=== PATIENT | male | born 1950 | race Caucasian/White ===

== ENCOUNTER 2017-03-04 11:21 | Day surgery (SDC) | payer MEDICARE, OTHER ==
[~2017-03-04] VITALS: Ht 180.3 cm; Wt 103.3 kg
[~2017-03-04 11:21] MED LIST: CARV25TA2 PO; CHOL200025 PO; CeFAZolin 2 Gm/50 mL D5W IV Premix IV ONE; GLIM2TAB2 PO; HYDR2TAB27 PO; LIP40 PO; Lactated Ringer's 1,000 ML IV SCH; MULT-1018 PO; ONDA8TAB7 PO; SODI650T PO
[2017-03-04] MEDS ORDERED: Ketamine 10 mg/mL 20 mL Inj ONE (11:22)
[2017-03-04] MEDS ORDERED: Propofol 10,000 mCg/mL 20 mL Inj ONE (11:22)
[2017-03-04] MEDS ORDERED: fentaNYL-PF 50 mCg/mL 2 mL Inj ONE (11:22)
[2017-03-04 12:04] VITALS: BP 167/71; PULSE 70; RESP 16; O2SAT 100
[2017-03-04] MEDS ORDERED: CeFAZolin Inj 2 gm / 50mL D5W IV ONE (12:10)
[2017-03-04] MEDS ORDERED: Lactated Ringer's 1,000 ML IV ONE (12:51)
[2017-03-04] MEDS ORDERED: HepLOK Flush 100 unit/mL 5 mL Inj IVFLUSH ONE (13:13)
[2017-03-04] MEDS ORDERED: Lidocaine PF 1% 30 mL Inj INFILTRATE ONE (13:13)
[2017-03-04] MEDS ORDERED: Bupivacaine-MPF 0.5% 30 mL Inj INJ ONE (13:13)
[2017-03-04] MEDS ORDERED: Lactated Ringer's 1,000 ML IV SCH (13:15)
[2017-03-04] MEDS ORDERED: HYDROmorphone 1 mg/mL Inj IVPUSH PRN (13:15)
[2017-03-04] MEDS ORDERED: EPHEDrine Sulfate 50 mg/mL Inj IVPUSH PRN (13:15)
[2017-03-04] MEDS ORDERED: Phenylephrine 10,000 mCg/mL Inj IVPUSH PRN (13:15)
[2017-03-04] MEDS ORDERED: Ondansetron 2 mg/mL 2 mL Inj IVPUSH PRN (13:15)
[2017-03-04] MEDS ORDERED: Dexamethasone 4 mg/mL Inj IVPUSH PRN (13:15)
[2017-03-04] MEDS ORDERED: Atropine 0.4 mg/mL Inj IVPUSH PRN (13:15)
[2017-03-04] MEDS ORDERED: Labetalol 5 mg/mL 4 mL Inj IV PRN (13:15)
[2017-03-04] MEDS ORDERED: Lactated Ringer's 500 ML IV PRN (13:15)
[2017-03-04] MEDS ORDERED: MetoCLOpramide 5 mg/mL 2 mL Inj IVPUSH PRN (13:15)
[2017-03-04] MEDS ORDERED: fentaNYL-PF 50 mCg/mL 2 mL Inj IVPUSH PRN (13:15)
--- NOTE | 2017-03-04 13:15 | PCM.HPANE ---
Patient Data Surgeon Admitting Provider: Attending Provider:Zaid Garcia MD Primary Care Physician:Rhianna Scott MD Other Provider:Deena Callingham Anesthesia Reason for Visit Metastatic Liver Cancer Ht/WT & BMI Height (Feet): 5 Height (Inches): 11 Weight (Kilograms): 103.3 Body Mass Index 31.00 Allergies Coded Allergies: No Known Allergies (Unverified , 02/25/17) Past Anesthesia History Anesthesia History: Denies:: Abnormal Airway, Anesthesia Reactions (valium pre- op as teenager - made him feel very strange), Difficult Intubation, Fam Anesthesia Reaction Diabetes History Hx Diabetes?: Yes Type of Diabetes: Type II Glycemic Control: Oral Medication MRSA MRSA: No Medications Hypertension Medication: Yes Home Meds Incl Beta Claus: Yes Time Beta Claus Taken: 729 Reported Medications Hydromorphone (Dilaudid)2 Mg Tablet2 Mg PO Q4H PRN Pain 02/26/17 Ondansetron ODT (Zofran ODT)8 Mg Tablet8 Mg PO Q4H PRN For Nausea 02/26/17 Cholecalciferol (Vitamin D3) (Vitamin D3)2,000 Unit Tablet2,000 Unit PO DAILY 02/04/17 Multivitamin (Multi Vitamin Daily)1 Each Tablet1 Each PO DAILY Ref 0 02/04/17 Sodium Bicarbonate 650 Mg [id number] Mg PO BID 02/04/17 Glimepiride 2 Mg Tablet2 Mg PO BID Ref 0 02/04/17 Carvedilol 25 Mg [id number] Mg PO BID Ref 0 02/04/17 Atorvastatin (Lipitor)40 Mg [id number] Mg PO DAILY Ref 0 02/04/17 Discontinued Reported Medications Bicalutamide 50 Mg [id number] Mg PO DAILY 02/04/17 Acetaminophen/Codeine 300-30mg (Tylenol/Codeine #3)1 Each Tablet1 Tablet PO q4- 6hrs PRN Pain Ref 0 02/04/17 Aspirin 81 Mg [id number] Mg PO DAILY Ref 0 02/04/17 [place]-3/Dha/Epa/Fish Oil (Fish Oil 1,000 mg Softgel)1 Each Capsule2 Each PO DAILY 02/04/17 History History of ENT Problems?: No HEENT History: Denies:: Abnormal Airway Cataracts Difficult Intubation Glaucoma Hearing Problem Sinus Problem Hx of Heart Problems?: Yes Cardiovascular History: Positive for:: Hypertension Denies:: AICD Abdominal Aortic Aneurism Atrial Fibrillation Chest Pain Congestive Heart Failure Coronary Artery Disease Edema Heart Murmur Irregular Heartbeat Pacemaker Peripheral Vascular Rheumatic Fever Thrombophlebitis Hx of Respiratory Problem?: Yes Respiratory History: Positive for:: Pneumonia (probably 4 times in his life, late 2015) Denies:: Asthma COPD Dyspnea Emphysema Hemoptysis Oxygen Administration Tuberculosis Use of C-PAP Machine Use of Inhalers / NEBS Hx Neurologic Problems?: No Neurological History: Denies:: Alzheimer's Disease CVA Dementia Dizziness Headaches Multiple Sclerosis Parkinson's Disease Seizures Hx of GI Problems?: No Gastrointestinal History: Denies:: Cirrhosis Diverticulitis Gastroesphageal Reflux Heartburn Hepatitis Rectal Bleeding Other GI Pertinent History: colon cancer with mets - current admission problem Hx of Problems?: Yes Genitourinary History: Denies:: HX of Hemodialysis (stage III CKD/ ) Kidney Stones Urinary Tract Infection Male Hx: Positive for:: Prostate Problems (radical prostatectomy) Skin History: Denies:: History Skin Disorders? Pressure Ulcers Hx Musculoskeletal Problems?: Yes Musculoskeletal History: Positive for:: Back Injury (angelica mets) Osteoarthritis Denies:: Fibromyalgia Joint Replacement Musculoskeletal Trauma Hx of Psycho/Social Problems?: No Psycho Social History: Denies:: Anxiety Bipolar Disorder Hx Depression Hx Surgeries?: Yes (radical prostatectomy, hand ) Hx Any Other Health Problems?: Yes Other History: Positive for:: Cancer (prostate, colon) Hospitalization Denies:: Endocrine Disease Thyroid Disease History Blood Transfusions: Positive for:: Accept Blood Products? Denies:: Blood Transfusions Hx Diabetes: Yes Hx Alcohol Use: YesAlcoholic Drinks Per Day: holidays, occasions- none recentlyHx Substance Use: No Smoking Status: Former Smoker Have You Smoked inLast 12 mo: No Stop/Bang S-Snoring: Do You Snore Loudly: Yes T-Tired: feel tired, fatigued: No O-Obsered: Observed not breath: Yes P-Blood Pressure: treated: Yes B- Body Mass Index > 35 kg/m2: No A- Age over 50: Yes N- Neck Large Circumference: No G- Gender Male: Yes TREVER Total Score: 5 Risk Assessment Category Category 1A: Patient has history of documented sleep apnea, and HAS NOT received any narcotic, sedative or anesthesia administration during this stay. Category 1B: Patient has history of documented sleep apnea, and HAS received any narcotic , sedative or anesthesia administration during this stay Category 2: Patient has SUSPECTED Obstructive Sleep Apnea, and HAS received any narcotic , sedative or anesthesia administration during this stay. Category 3: Patient has SUSPECTED Obstructive Sleep Apnea and HAS NOT received narcotic, sedative or anesthesia administration during this stay. Category 4: Outpatient in Procedural Areas with known sleep apnea or who screen positive for High Risk via the STOP/BANG questionnaire. Exam Exam Vital Signs Vital Signs Date Time Temp Pulse Resp B/P Pulse Ox O2 Delivery O2 Flow Rate FiO2 03/04/17 12:04 35.9 70 16 167/71 100 Room Air General Appearance: Alert, Oriented X3, Cooperative, No Acute Distress HEENT/AIRWAY: MP 2 Lungs: Clear to Auscultation, Normal Air Movement Heart: Exam Unremarkable, Regular Rate/Rhythm, No Murmurs/Rubs/Gallops Plan Impression Patient chart reviewed, patient interviewed and anesthestic plan with risks, benefits, and alternatives discussed, and informed consent obtained. NPO Status: 1000 sips ASA Physical Status: ASA2 Mod Systemic Disease Anesthetic Plan: MAC Bene/Risks/Altern/Consents: Yes HP Complete Prior to Induction: Yes Serge Powers DO Mar 04, 2017 13:15
[2017-03-04] MEDS ORDERED: HYDROcodone-APAP 5-325 mg Tablet PO PRN (13:35)
[2017-03-04 13:41] VITALS: BP 139/77; PULSE 76; RESP 16; O2SAT 97
[2017-03-04 14:30] VITALS: BP 124/76; PULSE 74; RESP 16; O2SAT 98
--- NOTE | 2017-03-04 16:04 | PCM.ANEP1 ---
Post Anesthesia Phase 1 PACU Phase 1 Assessment Vital Signs Vital Signs Date Time Temp Pulse Resp B/P Pulse Ox O2 Delivery O2 Flow Rate FiO2 03/04/17 14:30 74 16 124/76 98 Room Air 03/04/17 13:41 36.3 76 16 139/77 97 Room Air 03/04/17 12:04 35.9 70 16 167/71 100 Room Air Anesthetic Administered: MAC CONTRERAS's with Equal Strength: Yes Pain: Yes Pain Scale Score: 0 Nausea or Vomiting: No Oxygen Delivery: Room Air Lungs: Clear to Auscultation, Normal Air Movement Serge Powers DO Mar 04, 2017 16:04
--- NOTE | 2017-03-04 17:29 | PCM.ANEP2 ---
Post Anesthesia Evaluation ASA/CMS Post Anesthesia Date of Service: Mar 04, 2017 VS in Patient's Normal Range?: Yes Resp Stable; Airway Patent?: Yes CV Function & Hydration Stable: Yes Mental Status Recovered?: Yes Pain control Satisfactory?: Yes N/V Control Satisfactory?: Yes Serge Powers DO Mar 04, 2017 17:29
--- NOTE | 2017-03-04 23:49 | OP ---
[address] [address] OPERATIVE REPORT PATIENT: DEEPAK PASTRANA : 1950 MR#: [id number] ADMIT: 03/04/2017 JOB ID: [id number] DATE OF SURGERY: 03/04/2017 PREOPERATIVE DIAGNOSIS(ES): 1. 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 2. Metastatic prostate cancer. POSTOPERATIVE DIAGNOSIS(ES): 1. 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 2. Metastatic prostate cancer. PROCEDURE: Left subclavian venous PowerPort. SURGEON: Zaid Garcia MD. CARPENTER MINE: None. INDICATIONS: A 67-year-old man just diagnosed last week with metastatic neuroendocrine tumor to his liver and he also has metastatic prostate cancer. PowerPort was requested by Dr. Suarez and also a colonoscopy. FINDINGS: The PowerPort was positioned into the proximal right atrium. There was good return of blood. No resistance to inflow and no pneumothorax by fluoroscopy. PROCEDURE: At the beginning and end of the operation, the SCOAP checklist was completed. He received deep sedation and local anesthesia with 1% lidocaine and 0.5% bupivacaine. Using ChloraPrep, he was prepped and draped in usual fashion. He was placed in the Trendelenburg position. A left subclavicular incision was made. The left subclavian vein was accessed and a guidewire positioned into the superior vena cava with fluoroscopic control. A pocket for the port was made on his anterior chest and a catheter tunneled between the two incisions, connected to the reservoir, which was secured to the chest wall with interrupted 2-0 Prolene sutures. The reservoir and catheter were flushed with heparinized saline and was cut to an appropriate length, and then with a split sheath introducer positioned into the proximal right atrium. There was good return of blood and no resistance to inflow. Again, no pneumothorax by fluoroscopy. The wounds were closed with subcutaneous 3-0 Vicryl, subcuticular 4-0 Vicryl. Dermabond was placed over the incisions. Estimated blood loss less than 10 cc. No apparent complications. The final sponge, needle and instrument counts were announced as correct, and the patient was returned to recovery room in stable condition.
[2017-03-06] MEDS ORDERED: GLIM2TAB PO (13:07)
[2017-03-06] MEDS ORDERED: CARV3.12 PO (13:08)
[2017-03-18] MEDS ORDERED: PROC-4 PO (09:57)
== END 2017-03-04 23:59 | disposition home or self-care (01) ==
LOC: SAS 11:21
PROVIDERS: ATTEND Surgery
PROC: 02H633Z Insertion of Infusion Device into Right Atrium, Percutaneous Approach (ICD-10-PCS; 2017-03-04)
PROC: B2141ZZ Fluoroscopy of Right Heart using Low Osmolar Contrast (ICD-10-PCS; 2017-03-04)
PROC: 0JH60XZ Insertion of Tunneled Vascular Access Device into Chest Subcutaneous Tissue and Fascia, Open Approach (ICD-10-PCS; principal; 2017-03-04 13:30)
DX: C61 Malignant neoplasm of prostate (principal); C7B.8 Other secondary neuroendocrine tumors; C79.51 Secondary malignant neoplasm of bone; E11.9 Type 2 diabetes mellitus without complications; Z79.84 Long term (current) use of oral hypoglycemic drugs; I10 Essential (primary) hypertension; Z87.891 Personal history of nicotine dependence
CPT/HCPCS: 36561; 77001; C1788; J0690; J1642; J2250; J3010; J7120

== ENCOUNTER 2017-03-07 10:05 | Day surgery (SDC) | payer MEDICARE, OTHER ==
[~2017-03-07] VITALS: Ht 180.3 cm; Wt 97.7 kg
[~2017-03-07 10:05] MED LIST changes: +0.9% Sodium Chloride 1,000 ML IV SCH; +CARV3.12 PO; -CeFAZolin 2 Gm/50 mL D5W IV Premix IV ONE; +GLIM2TAB PO; -GLIM2TAB2 PO; -Lactated Ringer's 1,000 ML IV SCH; +Sodium Chloride LOK Flush 10 mL Syringe IV PRN; +fentaNYL-PF 50 mCg/mL 2 mL Inj IVPUSH PRN
[2017-03-07] MEDS ORDERED: POLY17PO6 PO (10:32)
[2017-03-07 10:37] VITALS: BP 139/89; PULSE 87; RESP 14; O2SAT 98
[2017-03-07 11:40] VITALS: BP 148/87; PULSE 82; RESP 16; O2SAT 97
[2017-03-07 11:59] VITALS: BP 148/87; PULSE 75; RESP 14; O2SAT 97
--- NOTE | 2017-03-08 00:27 | ENDO ---
[address] [address] ENDOSCOPY PROCEDURE PATIENT: DEEPAK PASTRANA : 1950 MR#: [id number] ADMIT: 03/07/2017 JOB ID: [id number] DATE OF PROCEDURE: 03/07/2017 PREOPERATIVE DIAGNOSIS(ES): Poorly differentiated metastatic neuroendocrine tumor to the liver. POSTOPERATIVE DIAGNOSIS(ES): 1. 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 2. Duodenal ulcer. 3. Possible duodenal polyp. 4. Two proximal sigmoid colon polyps. 5. Sigmoid diverticulosis. PROCEDURES: 1. Upper endoscopy with biopsy. 2. Colonoscopy into terminal ileum with snare polypectomy x2. SURGEON: Zaid Garcia MD. INDICATIONS: A 67-year-old man who has a metastatic neuroendocrine tumor to his liver. Three days ago, I placed a PowerPort. The immunohistochemical studies of his liver metastasis suggested an upper gastrointestinal source. His PET scan showed enhancement in the sigmoid colon. After discussing options with the patient, and discussing his case with Dr. Juan M Suarez, it was elected to proceed with an upper endoscopy and a colonoscopy. His last colonoscopy was 11 years ago. FINDINGS: The esophagus was normal down to the GE junction, which was at 40 cm from the incisors. There was no evidence of esophageal inflammation, neoplasia, ulceration or stricture. Retroflexed views of the cardia revealed a normal Hill grade I flap valve. The fundus, body, and antrum of the stomach were normal. The pylorus was normal. In the duodenum there was a possible polyp but the overlying mucosa looked normal and I biopsied that. In the second portion of the duodenum there were three small nonbleeding ulcers that were biopsied separately. I could see well into the third portion of the duodenum. There was no gross evidence of malignancy in the esophagus, stomach or duodenum. He had an excellent prep. The scope was advanced into the terminal ileum. The withdrawal time was 12 minutes 37 seconds. In the proximal sigmoid colon he had two polyps, one of which was pedunculated measuring 1 to 1.5 cm. It was not ulcerated. It was not bleeding. I removed that with the cautery and snare. Stalk appeared normal. Immediately adjacent to it was a smaller polyp that I also removed with a snare and aspirated that. The larger polyp was removed with a Kirkpatrick Net. He had mild sigmoid diverticulosis. Retroflexed views of the rectum were normal. PROCEDURE: The procedure and sedation plan was discussed with the patient and nursing staff, and a procedural time-out was held. He gargled viscous Xylocaine. He received 6 mg of Versed and 150 mcg of fentanyl. The upper endoscopy was performed first with the GIF-H180J video endoscope. It was passed into the third portion the duodenum, withdrawn with results and biopsies as stated above. He was repositioned. A digital rectal exam was performed and the Olympus PCF-H180AL video colonoscope was passed transanally and advanced into the terminal ileum, which was totally normal. Withdrawn, and then as stated above, snare polypectomies with cautery as listed above. Specimens were submitted as a single specimen. Retroflexed views of the rectum were obtained. IMPRESSION: There is no clear evidence of a source for a metastatic neuroendocrine tumor in the esophagus, stomach, duodenum, colon, rectum or terminal ileum. PLAN: The patient is scheduled to see Dr. Suarez later this afternoon.
--- NOTE | 2017-03-08 11:18 | PATH ---
SURGICAL PATHOLOGY Attending Physician:Alxe Russ CASE STATUS: Signed Out PATIENT NAME: DEEPAK PASTRANA PID: [id number] : 1950 DATE COLLECTED:03/07/2017 20:43 SPECIMEN: 1: Duodenum, Biopsy 2: Duodenum, Biopsy 3: Colon, Biopsy CLINICAL HISTORY: 1). DUODENAL ULCER BIOPSY 2). DUODENAL BULB BIOPSY 3). PROXIMAL SIGMOID POLYPS X2 FINAL DIAGNOSIS: 1. Duodenal Ulcer Biopsy: Duodenal mucosa with acute and chronic inflammation and ulceration, and reactive epithelial changes. Negative for dysplasia and malignancy. Negative for evidence of celiac disease. 2. Duodenal Bulb Biopsy: Changes of chronic duodenitis with focal areas of foveolar metaplasia. Negative for evidence of celiac disease. Negative for dysplasia and malignancy. 3. Proximal Sigmoid Colon Polyps: Large polypoid tubular adenoma with no stalk identified. Small fragment of normal-appearing colon mucosa. ICD10 K26.9 GROSS DESCRIPTION: The specimen is received in three formalin filled containers labeled with the patient's name. 1). The specimen is sublabeled "duodenal" and consists of 2 portions of tissue which aggregate to 0.3 x 0.2 x 0.2 CM. The specimen is entirely submitted in cassette 1A. 2). The specimen is sublabeled "duodenal bulb" and consists of a 0.3 x 0.2 x 0.2 CM portion of tissue which is entirely submitted in cassette 2A. 3). The specimen is sublabeled "sigmoid polyps" and consists of 2 portions of tissue which aggregate to 0.8 x 0.8 x 0.7 CM. The smallest portion is entirely submitted in cassette 3A. The largest portion is trisected and entirely submitted in the same cassette. 03/07/2017 [facility] ICD-9 CODES: CPT CODES: 1: 48042 2: 96004 3: 45783 Electronically Signed Out Chris Whalen MD [facility] [place] [address] Technical component performed at [facility] [employer] [facility], [facility] [address], [place], [address]
[2017-03-18] MEDS ORDERED: PROC-4 PO (09:57)
== END 2017-03-07 23:59 | disposition home or self-care (01) ==
LOC: END 10:05
PROVIDERS: ATTEND Surgery
DX: C22.9 Malignant neoplasm of liver, not specified as primary or secondary (principal); K26.9 Duodenal ulcer, unspecified as acute or chronic, without hemorrhage or perforation; K29.80 Duodenitis without bleeding; D12.5 Benign neoplasm of sigmoid colon; K57.30 Diverticulosis of large intestine without perforation or abscess without bleeding; E11.9 Type 2 diabetes mellitus without complications; Z85.46 Personal history of malignant neoplasm of prostate; Z90.79 Acquired absence of other genital organ(s)

== ENCOUNTER 2017-08-05 19:27 | Emergency (ER) | payer MEDICARE, OTHER ==
[~2017-08-05 19:27] MED LIST changes: +0.9% Sodium Chloride 1,000 ML IV ONE; -0.9% Sodium Chloride 1,000 ML IV SCH; +CANNABIS TINCTURE PO; -CARV3.12 PO; -HYDR2TAB27 PO; -LIP40 PO; +LOPE-147 PO; +LORA1TAB PO; +METO-301 PO; -ONDA8TAB7 PO; +ONDA8TAB7 SL; +POLY17PO6 PO; +PRE20 PO; -Sodium Chloride LOK Flush 10 mL Syringe IV PRN; -fentaNYL-PF 50 mCg/mL 2 mL Inj IVPUSH PRN
--- NOTE | 2017-08-05 19:28 | ED.REPORT ---
HPI-General Illness Date of Service Aug 05, 2017 ED Provider: Leonardo Johnson DO Pt is a 67 year old male with a history of metastatic prostate cancer who presents to the ED via EMS for pain management. Per family, the pt has lost 40 lbs with worsening jaundice, global weakness, and decreased responsiveness. HPI difficult to obtain secondary to pt's condition. Nursing Notes Stated Complaint: UNCONTROLLED PAIN Chief Complaint: Pain management Nursing Notes Reviewed: Yes Allergies: Coded Allergies: No Known Drug Allergies (Verified Allergy, Unknown, 08/05/17) Scheduled ([Cannabis Tincture]) PO DAILY Carvedilol (Carvedilol) 25 Mg Tablet 25 MG PO DAILY Cholecalciferol (Vitamin D3) (Vitamin D3) 2,000 Unit Tablet 2,000 UNIT PO DAILY Glimepiride (Amaryl) 2 Mg Tablet 2 MG PO BID Loperamide HCl (Imodium A-D) 2 Mg Capsule 2 MG PO PRN Multivitamin (Multi Vitamin Daily) 1 Each Tablet 1 EACH PO DAILY Polyethylene Glycol 3350 (Miralax) 17 Gm Powd.pack 17 GM PO PRN Prednisone (PredniSONE) 20 Mg Tablet 20 MG PO QAM Sodium Bicarbonate (Sodium Bicarbonate) 650 Mg Tablet 650 MG PO 2tabs am, 1tabhs Scheduled PRN Lorazepam (Lorazepam) 1 Mg Tablet 1 MG PO Q8HRS PRN PRN For Nausea Metoclopramide (Reglan) 10 Mg Tablet 10 MG PO Q8HRS PRN PRN PRN For Nausea Ondansetron ODT (Zofran ODT) 8 Mg Tablet 8 MG SL Q8H PRN PRN For Nausea General Time Seen by MD: 19:26 Chief Complaint Other (pain management) Hx Obtained From: Spouse, EMS, Primary care provider (Dr. Mariano, oncologist) Arrived By: Ambulance Sudden in Onset?: No Onset Occurred: Onset unknown Symptom Duration: Since onset Quality: Painful Severity: Current: Moderate Severity: Maximum: Moderate Recent Healthcare: Recent doctor visit Similar Sx Previous: Yes Past Medical History Past Medical History Metastatic prostate cancer, colon cancer Reports: Diabetes mellitus, Hypertension Past Surgical History Radical prostatectomy Smoking History Former Smoker Social History Alcohol Use: "Social" Drug Use: Denies drug use Other Social History: Good social support Ambulatory Status Independent Review of Systems + jaundice, worsening + minimally responsive Full Review of Systems Constitutional: Reports: Weakness - generalized Endocrine: Reports: Weight loss Physical Exam Vital Signs Vital Signs Date Time Temp Pulse Resp B/P Pulse Ox O2 Delivery O2 Flow Rate FiO2 08/05/17 19:33 130 18 55/24 94 Room Air Initial VS: Reviewed Head / Eyes: Atraumatic, Normocephalic Neck: Supple, Full range of motion Respiratory: Breath sounds normal, Clear to auscultation, No respiratory distress Abdomen / GI: Soft, Non-tender Extremities: Vascular intact, Neuro intact General/Constitutional: Awake Alertness: Positive: Sleeping but arousable Critically ill appearing. Cardiovascular: Heart rate NL, Regular rhythm, Heart sounds NL Hypotensive Skin: Warm, Dry Jaundiced. Neurologic: CN II - XII intact Minimally responsive. Interpretation & Diagnostics Lab Results Interpretation Result Diagram: 08/05/17200008/05/172000 Test 08/05/17 20:01 White Blood Count 13.6th/mm3 (3.8-10.1) Red Blood Count 2.81mil/mm3 (4.40-5.80) Hemoglobin 8.3g/dL (13.8-17.2) Hematocrit 27.3% (41.0-50.0) Mean Corpuscular Volume 97.2fL (81-100) Mean Corpuscular Hemoglobin 29.5pg (27.0-35.0) Mean Corpuscular Hemoglobin Concent 30.4% (32.0-37.0) Red Cell Distribution Width 21.3% (12.3-15.4) Platelet Count 143bil/L (150-400) Neutrophils (%) (Auto) 76.3% (40-74) Lymphocytes (%) (Auto) 11.2% (14-46) Monocytes (%) (Auto) 6.8% (4-12) Eosinophils (%) (Auto) 0.1% (0-5) Basophils (%) (Auto) 0.3% (0-3) Prothrombin Time 73.5sec (8.1-12.5) Prothromb Time International Ratio 6.61ratio Sodium Level 136mEq/L (134-144) Potassium Level 8.5mEq/L (3.5-5.2) Chloride Level 84mEq/L (97-108) Carbon Dioxide Level 8mmol/L (18-29) Blood Urea Nitrogen 140mg/dL (8-27) Creatinine 5.44mg/dL (0.76-1.27) Estimat Glomerular Filtration Rate 11mL/min (>59) Glucose Level 126mg/dL (60-99) Lactic Acid Level 25.4mmol/L (0.4-2.0) Calcium Level 11.0mg/dL (8.5-10.1) Magnesium Level 3.4mg/dL (1.6-2.6) Total Bilirubin 9.1mg/dL (0.0-1.2) Aspartate Amino Transf (AST/SGOT) 168U/L (0-50) Alanine Aminotransferase (ALT/SGPT) 103U/L (0-44) Alkaline Phosphatase 592U/L (25-160) Total Protein 5.3g/dL (6.4-8.4) Albumin 2.7g/dL (3.4-5.0) Lipase 87U/L (13-60) Re-Eval/Medical Decision Med Decision/Clinical Course 67-year-old male was referred to us by his oncologist for admission for palliative care. He has terminal cancer with significant complications or steadily worsening. His is unable to manage this at home. He presented hypotensive and minimally responsive. He was markedly jaundiced. I brought his back with him. She can affirm that he would not want any further resuscitation and she understands that he is near the end of his fight with cancer. We had planned on admitting him to the hospital however I was informed by nursing staff that when her hospitalist evaluated Mr. Hicks he had . On my second evaluation his Naye Coma Scale was 3. He had no response whatsoever. He was apneic and there were no pulses. Please see nursing notes for time of . Source of Hx: Old records Time of Eval: 19:30 Re-Evaluation/Progress Note: Informed pt of plan for care and admission. Pt understands and agrees with plan for admission. Time of Eval: 19:43 Re-Evaluation/Progress Note: Pt rechecked. Spoke with pt's and mother. Informed of plan for admission and treatment. All questions addressed. Time of Eval: 20:03 Re-Evaluation/Progress Note: Pt rechecked. Pt . Spoke with pt's family. Consultation #1: Referral / Consult Name: Maxine Small DO Consulted With: Hospitalist Call Returned at: 19:53 Cycle Consultant: Will see patient, Agrees with eval, Agrees with plan, Accepts admit Consultation #2: Call Returned at: 19:20 Note: Consulted with Dr. Mariano, oncologist. Discussed pt's case and need for pain management. Counseled Regarding: Diagnosis, Lab results, Need for admission, Other ( ) Discharge & Departure Primary Impression: Metastatic malignant neuroendocrine tumor to liver Additional Impression: Disposition: Discharge Condition All VS Reviewed: Yes Condition: Stable Referrals: Rhianna Scott MD (PCP) Peyman Attestation Portions of this note were transcribed by Daina Marshall. I, Dr. Johnson personally performed the history, physical exam and medical decision-making; I reviewed and confirmed the accuracy of the information in the transcribed note. Signed by : Peyman Ross, 08/05/17. copies to: Rhianna Scott MD, Todd P DO Aug 05, 2017 19:28 Daina Rene Aug 05, 2017 19:49
[2017-08-05] MEDS ORDERED: HYDROmorphone 0.5 mg/0.5 mL iSecure Syringe IVPUSH PRN (19:30)
[2017-08-05 19:33] VITALS: BP 55/24; PULSE 130; RESP 18; O2SAT 94
[2017-08-05 20:08] LABS: BASOPHILS % (AUTO) 0.3 % (0-3); EOSINOPHILS % (AUTO) 0.1 % (0-5); MONOCYTES % (AUTO) 6.8 % (4-12)
[2017-08-05 20:12] LABS: Mean Corpuscular Hemoglobin 29.5 pg (27.0-35.0); Mean Corpuscular Volume 97.2 fL (81-100); NEUTROPHILS % (AUTO) 76.3 % (40-74); Platelet Count 143 bil/L (150-400)
[2017-08-05 20:31] LABS: Magnesium 3.4 mg/dL (1.6-2.6)
[2017-08-05 20:42] LABS: INR 6.61 ratio
== END 2017-08-05 20:25 | disposition expired ==
LOC: SED 19:27
DX: C7B.8 Other secondary neuroendocrine tumors (principal); R17 Unspecified jaundice; R53.1 Weakness; I10 Essential (primary) hypertension; E11.9 Type 2 diabetes mellitus without complications; Z85.46 Personal history of malignant neoplasm of prostate; Z90.79 Acquired absence of other genital organ(s); Z87.891 Personal history of nicotine dependence; Z79.52 Long term (current) use of systemic steroids; Z51.5 Encounter for palliative care
CPT/HCPCS: 36415; 80053; 83605; 83690; 83735; 85025; 85610; 96374; 99285; J1170; J7030